=== PATIENT | male | born 1985 | race Caucasian/White ===

== ENCOUNTER 2024-12-30 12:45 | Emergency (ER) | payer OTHER ==
[~2024-12-30] VITALS: Ht 182.9 cm; Wt 81.8 kg
[2024-12-30] MEDS ORDERED: Cetirizine 10 MG TAB PO ONE (13:15)
[2024-12-30 13:59] VITALS: BP 126/81
== END 2024-12-30 14:00 | disposition home or self-care (01) ==
LOC: ED 12:45
DX: R21 Rash and other nonspecific skin eruption (principal); T50.995A Adverse effect of other drugs, medicaments and biological substances, initial encounter; J06.9 Acute upper respiratory infection, unspecified